=== PATIENT | female | born 1980 | race Caucasian/White ===

== ENCOUNTER 2018-03-12 13:23 | Day surgery (SDC) | payer MEDICAID ==
[~2018-03-12] VITALS: Ht 170.2 cm; Wt 64.6 kg
[2018-03-12 13:26] VITALS: BP_SYST 104
[2018-03-12] MEDS ORDERED: KETOROLAC TROMETHAMINE 15 MG VIAL IVP ONE (13:45)
[2018-03-12] MEDS ORDERED: NACL 0.9% 1,000 ML IV ONE (13:45)
[2018-03-12] MEDS ORDERED: ONDANSETRON HCL 4 MG/2 ML VIAL IVP ONE (13:45)
[2018-03-12 14:27] LABS: BASOPHILS % (AUTO) 0.6 % (0.0-2.0); MONOCYTES # (AUTO) 0.3 K/uL (0.0-1.0); RED CELL DISTRIBUTION WIDTH 15.1 % (9.0-15.0)
[2018-03-12 14:32] LABS: CALCIUM 8.2 mg/dL (8.4-11.0); CREATININE 0.73 mg/dL (0.55-1.30); POTASSIUM 3.4 mmol/L (3.5-5.1)
[2018-03-12 14:36] LABS: EOSINOPHILS # (AUTO) 0.1 K/uL (0.0-0.4); EOSINOPHILS % (AUTO) 0.8 % (0.0-4.0); HEMATOCRIT 32.7 % (36-48); HEMOGLOBIN 10.7 g/dL (12.0-16.0); LYMPHOCYTES # (AUTO) 1.1 K/uL (1.0-5.5); LYMPHOCYTES % (AUTO) 17.5 % (20.5-51.5); MEAN CORPUSCULAR HEMOGLOBIN 26 pg (27-31); MEAN CORPUSCULAR HGB CONC 33 % (32-36); MEAN CORPUSCULAR VOLUME 80 fL (79.0-98.0); MONOCYTES % (AUTO) 5.2 % (1.7-9.3); NEUTROPHILS # (AUTO) 4.8 K/uL (1.8-7.7); NEUTROPHILS % (AUTO) 75.9 % (40.0-70.0); PLATELET COUNT (AUTO) 234 K/uL (130-430); RED BLOOD CELL COUNT(AUTO) 4.08 MIL/uL (4.2-6.2); WHITE BLOOD COUNT (AUTO) 6.3 K/uL (4.8-10.8)
[2018-03-12 14:53] LABS: BILIRUBIN,URINE NEGATIVE (NEGATIVE); BLOOD, URINE 3+ (NEGATIVE); CLARITY/URINE HAZY (CLEAR); COLOR,URINE RED (YELLOW); GLUCOSE,URINE NEGATIVE (NEGATIVE); KETONES,URINE NEGATIVE (NEGATIVE); LEUKOCYTE ESTERASE ,URINE TRACE (NEGATIVE); NITRITE, URINE NEGATIVE (NEGATIVE); PH,URINE 6.5 (5.0-8.0); PROTEIN URINE 1+ (NEGATIVE); UROBILINOGEN,URINE 0.2 (0.2-1.0)
[2018-03-12 14:58] LABS: ALBUMIN 3.3 g/dL (3.4-4.8); TOTAL BILIRUBIN 0.2 mg/dL (0.0-1.0)
[2018-03-12 15:16] LABS: BACTERIA,URINE RARE /HPF (None Seen); RBC,URINE >100 /HPF (0-3)
[2018-03-12 16:13] LABS: INR 1.1 (0.8-1.2); PROTHROMBIN TIME 10.8 SECS (9.5-12.5)
[2018-03-12] MEDS ORDERED: LR 1,000 ML IV ONE (16:30)
[2018-03-12] MEDS ORDERED: ONDANSETRON HCL 4 MG/2 ML VIAL IVP PRN ×2 (18:45→19:45)
[2018-03-12] MEDS ORDERED: fentaNYL CITRATE/PF 100 MCG/2 ML AMP IVP PRN ×2 (18:45)
[2018-03-12] MEDS ORDERED: fentaNYL CITRATE/PF 100 MCG/2 ML AMP ONE (19:40)
[2018-03-12] MEDS ORDERED: NS IRRIG SOLN 1000 ML IR ONE (19:40)
[2018-03-12] MEDS ORDERED: MIDAZOLAM HCL 5 MG/ML VIAL (VERSED) IV ONE (19:40)
[2018-03-12] MEDS ORDERED: KETOROLAC TROMETHAMINE 30 MG VIAL ONE (19:40)
[2018-03-12] MEDS ORDERED: PROPOFOL 200MG/ 20ML VIAL (DIPRIVAN) IV ONE (19:40)
[2018-03-12] MEDS ORDERED: NEOSTIGMINE METHYLSULFATE 1 MG/ML, 10 ML VIAL ONE (19:40)
[2018-03-12] MEDS ORDERED: BUPIVACAINE /PF 0.25% 30 ML VIAL INJ ONE (19:40)
[2018-03-12] MEDS ORDERED: ROCURONIUM BROMIDE 10 MG/ML (ZEMURON) ONE (19:40)
[2018-03-12] MEDS ORDERED: LR 1,000 ML IV.SOLN IV ONE (19:40)
[2018-03-12] MEDS ORDERED: GLYCOPYRROLATE 0.2 MG/ML VIAL ONE (19:40)
[2018-03-12] MEDS ORDERED: SEVOFLURANE 15 MIN GAS INH ONE (19:40)
[2018-03-12] MEDS ORDERED: CEFAZOLIN 2 GM IVPB PREMIX 50 ML IV ONE (19:40)
[2018-03-12] MEDS ORDERED: HYDROcodone/ACETAMIN 5-325 MG TAB (NORCO/ VICODIN) PO PRN (19:45)
[2018-03-12] MEDS ORDERED: OXYCODONE/ACETAMINOPHEN 5-325 TABLET PO PRN ×2 (19:45)
[2018-03-12 20:33] VITALS: BP_SYST 142
[2018-03-12 20:52] VITALS: BP_SYST 142
[2018-03-13] VITALS: BP_SYST 87
[2018-03-13 04:20] VITALS: BP_SYST 84
[2018-03-13 08:25] VITALS: BP_SYST 103
[2018-03-13 11:31] VITALS: BP_SYST 107
[2018-03-13 12:45] VITALS: BP_SYST 107
== END 2018-03-13 14:27 | disposition home or self-care (01) ==
LOC: SED 13:23 → SMU 17:30 → SDS 17:59 → SMU 17:59 → SDS 03-13 14:27
PROVIDERS: ATTEND Specialist
DX: O00.102 Left tubal pregnancy without intrauterine pregnancy (principal); Z98.890 Other specified postprocedural states; K66.1 Hemoperitoneum
CPT/HCPCS: 36415; 76801; 76817; 80053; 81000-TC; 84702-TC; 85025; 85610-TC; 85730-TC; 86901; 87086; 88305; C1727; C1782; J0690; J1885; J2250; J2405; J2704; J2710; J3010; J3490; J7120